=== PATIENT | female | born 1985 | race Caucasian/White ===

== ENCOUNTER 2021-07-20 05:00 | Inpatient (IN) | payer OTHER ==
[~2021-07-20 05:00] MED LIST: COLACE 100MG C100 MG PO; IBUPROFEN600 MG PO; LORTAB 5-325 M1 EACH PO; MECLIZINE HCL25 MG PO; NAPROSYN500 MG PO; TUMS DUAL ACTI1 EACH PO
[2021-07-20 06:36] LABS: HEMOGLOBIN 12.4 gm/dl (12.3-15.3); RED BLOOD COUNT 3.97 M/UL (4.00-5.10)
[2021-07-20] MEDS ORDERED: IBUPROFEN600 MG PO (08:51)
[2021-07-20] MEDS ORDERED: COLACE 100MG C100 MG PO (08:51)
[2021-07-20] MEDS ORDERED: FERROUS SULFAT325 MG PO (08:51)
[2021-07-21 08:30] LABS: HEMOGLOBIN 11.2 gm/dl (12.3-15.3)
[2021-07-21] MEDS ORDERED: HYDROCODON-ACE1 EAC4 PO (10:54)
== END 2021-07-21 17:58 | disposition home or self-care (01) | DRG 807 ==
LOC: GENOP 05:00 → OB 05:40
PROVIDERS: ADMIT Obstetrics & Gynecology
PROC: 10E0XZZ Delivery of Products of Conception, External Approach (ICD-10-PCS; principal; 2021-07-20)
DX: O80 Encounter for full-term uncomplicated delivery (principal); Z37.0 Single live birth; Z3A.37 37 weeks gestation of pregnancy; Z98.890 Other specified postprocedural states
CPT/HCPCS: 36415; 85014; 85018; 85025; 85461; 86850; 86900; 86901; J0595; J2405; J2590; J2790; U0002